=== PATIENT | female | born 1970 | race Caucasian/White ===

== ENCOUNTER → 2016-11-02 | Outpatient (REF) | payer OTHER ==
[~2016-11-02] MED LIST: BACL1TAB9 PO; CITA40TA4 PO; DIFL150T PO; HYDR-3713 PO; LIDO5DIS41 TD; MACR100C43 PO; MIREIUD IU; NASA1SPR; NORT25CA2 PO; OMEP20CA3 PO; RIZA10TA4 PO; SUDA1TAB3 PO; TIZA4CAP3 PO; TRAM50TA2 PO; VITA100066 PO; VITACHTA PO
[2016-11-02 22:20] LABS: MICROSCOPIC INDICATED? MAN YES (NO)
[2016-11-02 22:31] LABS: BACTERIA, URINE MOD AMOUNT; SQUAMOUS EPITHELIAL CELL URINE SMALL AMOUNT /hpf (SMALL AMT)
[2016-11-02 22:32] LABS: HYALINE CAST, URINE NONE SEEN /lpf (0-1); MICROSCOPIC EXAM PERFORMED
== END ==
LOC: M LAB REF 20:51
PROVIDERS: ATTEND Physician Assistant Medical
DX: R30.0 Dysuria (principal)

== ENCOUNTER → 2017-03-15 | Outpatient (REF) | payer OTHER ==
[2017-03-15 20:11] LABS: ALBUMIN 3.2 GM/DL (3.2-5.2); ALBUMIN/GLOBULIN RATIO 1.03 (1.00-1.93); ALKALINE PHOSPHATASE 174 U/L (45-117); ALT/SGPT 25 U/L (12-78); ANION GAP 6 MEQ/L (8-16); AST/SGOT 15 U/L (7-37); BILIRUBIN,TOTAL 0.3 MG/DL (0.2-1.0); BLOOD UREA NITROGEN 9 MG/DL (7-18); CALCIUM LEVEL 8.3 MG/DL (8.5-10.1); CARBON DIOXIDE LEVEL 31 MEQ/L (21-32); CHLORIDE LEVEL 107 MEQ/L (98-107); CHOLESTEROL LEVEL 193 MG/DL (<200); CREATININE FOR GFR 0.71 MG/DL (0.55-1.02); FERRITIN 16 NG/ML (8-252); FREE T4 0.85 NG/DL (0.76-1.46); GLOMERULAR FILTRATION RATE > 60.0 (>58); GLUCOSE, FASTING 120 MG/DL (70-105); MAGNESIUM LEVEL 1.8 MG/DL (1.8-2.4); PERCENT SATURATION 21.6 % (13.2-45.0); POTASSIUM SERUM 3.3 MEQ/L (3.5-5.1); SODIUM LEVEL 144 MEQ/L (136-145); TOTAL IRON BINDING CAPACITY 348 UG/DL (250-450); TOTAL PROTEIN 6.3 GM/DL (6.4-8.2); TRIGLYCERIDES LEVEL 102 MG/DL (<150)
[2017-03-16 09:20] LABS: FOLATE 16.8 NG/ML; VITAMIN B12 LEVEL 506 PG/ML
== END ==
LOC: M SFHCADAM 15:09
PROVIDERS: ATTEND Physician Assistant Medical
DX: F34.1 Dysthymic disorder (principal); Z98.84 Bariatric surgery status

== ENCOUNTER → 2018-01-04 | Outpatient (REF) | payer OTHER ==
[2018-01-04 17:35] LABS: BASO # 0.1 10^3/uL (0.0-0.2); EOS # 0.1 10^3/uL (0.0-0.50); EOS % 2.4 % (0.0-3.0); HEMATOCRIT 39.2 % (36.0-47.0); HEMOGLOBIN 13.1 g/dl (12.0-15.5); IMMATURE GRANULOCYTE % 0.2 % (0-3.0); LYMPH # 1.4 10^3/uL (1.5-4.5); LYMPH % 26.8 % (24.0-44.0); MEAN CORPUSCULAR HEMOGLOBIN 29.8 pg (27.0-33.0); MEAN CORPUSCULAR HGB CONC 33.4 g/dl (32.0-36.5); MEAN CORPUSCULAR VOLUME 89.1 fl (80.0-96.0); MONO # 0.6 10^3/uL (0.0-0.8); MONO % 11.4 % (0.0-5.0); NEUTROPHILS % 58.2 % (36.0-66.0); PLATELET COUNT, AUTOMATED 232 10^3/uL (150-450); RED CELL DISTRIBUTION WIDTH 13.3 % (11.5-14.5); WHITE BLOOD COUNT 5.1 10^3/uL (4.0-10.0)
[2018-01-04 18:00] LABS: ALBUMIN 3.5 GM/DL (3.2-5.2); ALKALINE PHOSPHATASE 153 U/L (45-117); ALT/SGPT 18 U/L (12-78); ANION GAP 8 MEQ/L (8-16); AST/SGOT 14 U/L (7-37); BILIRUBIN,TOTAL 0.3 MG/DL (0.2-1.0); BLOOD UREA NITROGEN 8 MG/DL (7-18); C REACTIVE PROTEIN QUANTITATIV < 0.30 MG/DL (0.00-0.30); CALCIUM LEVEL 8.3 MG/DL (8.5-10.1); CARBON DIOXIDE LEVEL 26 MEQ/L (21-32); CHLORIDE LEVEL 112 MEQ/L (98-107); CREATININE FOR GFR 0.68 MG/DL (0.55-1.30); GLOMERULAR FILTRATION RATE > 60.0 (>58); GLUCOSE, FASTING 43 MG/DL (70-100); POTASSIUM SERUM 3.9 MEQ/L (3.5-5.1); SODIUM LEVEL 146 MEQ/L (136-145); TOTAL PROTEIN 6.8 GM/DL (6.4-8.2)
[2018-01-04 18:08] LABS: ERYTHROCYTE SEDIMENTATION RATE 8 mm/hr (0-20)
[2018-01-04 20:07] LABS: ALBUMIN/GLOBULIN RATIO 1.06 (1.00-1.93)
== END ==
LOC: M SFHCLERA 14:13
DX: M54.42 Lumbago with sciatica, left side (principal)

== ENCOUNTER → 2018-03-19 | Outpatient (REF) | payer OTHER ==
[2018-03-19 17:44] LABS: ALBUMIN 3.2 GM/DL (3.2-5.2); ALBUMIN/GLOBULIN RATIO 0.94 (1.00-1.93); ALKALINE PHOSPHATASE 152 U/L (45-117); ALT/SGPT 16 U/L (12-78); ANION GAP 8 MEQ/L (8-16); AST/SGOT 15 U/L (7-37); BILIRUBIN,TOTAL 0.3 MG/DL (0.2-1.0); BLOOD UREA NITROGEN 7 MG/DL (7-18); CALCIUM LEVEL 8.2 MG/DL (8.5-10.1); CARBON DIOXIDE LEVEL 28 MEQ/L (21-32); CHLORIDE LEVEL 108 MEQ/L (98-107); CHOLESTEROL LEVEL 200 MG/DL (<200); CREATININE FOR GFR 0.68 MG/DL (0.55-1.30); FREE T4 0.85 NG/DL (0.76-1.46); GLOMERULAR FILTRATION RATE > 60.0 (>58); GLUCOSE, FASTING 78 MG/DL (70-100); HDL CHOLESTEROL 100 MG/DL (>40); LDL CHOLESTEROL 85 MG/DL (<100); MAGNESIUM LEVEL 1.8 MG/DL (1.8-2.4); NON-HDL-C 100 MG/DL; POTASSIUM SERUM 4.4 MEQ/L (3.5-5.1); SODIUM LEVEL 144 MEQ/L (136-145); TOTAL PROTEIN 6.6 GM/DL (6.4-8.2); TRIGLYCERIDES LEVEL 75 MG/DL (<150)
[2018-03-19 17:49] LABS: BASO # 0.1 10^3/uL (0.0-0.2); BASO % 1.3 % (0.0-1.0); EOS # 0.1 10^3/uL (0.0-0.50); EOS % 1.3 % (0.0-3.0); HEMATOCRIT 38.3 % (36.0-47.0); HEMOGLOBIN 12.8 g/dl (12.0-15.5); IMMATURE GRANULOCYTE % 0.3 % (0-3.0); LYMPH # 1.3 10^3/uL (1.5-4.5); LYMPH % 32.3 % (24.0-44.0); MEAN CORPUSCULAR HEMOGLOBIN 30.4 pg (27.0-33.0); MEAN CORPUSCULAR HGB CONC 33.4 g/dl (32.0-36.5); MONO # 0.6 10^3/uL (0.0-0.8); MONO % 14.7 % (0.0-5.0); NEUTROPHILS # 1.9 10^3/uL (1.8-7.7); NEUTROPHILS % 50.1 % (36.0-66.0); PLATELET COUNT, AUTOMATED 215 10^3/uL (150-450); RED BLOOD COUNT 4.21 10^6/uL (4.00-5.40); RED CELL DISTRIBUTION WIDTH 11.5 % (11.5-14.5); WHITE BLOOD COUNT 3.9 10^3/uL (4.0-10.0)
[2018-03-19 18:16] LABS: ESTIMATED AVERAGE GLUCOSE 103 MG/DL (60-110); HEMOGLOBIN A1c 5.2 %
[2018-03-21 10:29] LABS: TOTAL 25(OH) VITAMIN D 54.2 NG/ML (30.0-100.0); VITAMIN B12 LEVEL 388 PG/ML
[2018-03-21 10:30] LABS: FOLATE 13.7 NG/ML
== END ==
LOC: M SFHCADAM 09:07
DX: Z98.84 Bariatric surgery status (principal)

== ENCOUNTER → 2018-11-25 | Outpatient (REF) | payer OTHER ==
[~2018-11-25] MED LIST changes: +MIRE1IUD IU; -MIREIUD IU; -OMEP20CA3 PO; +OMEP20CA4 PO; +TIZA4CAP PO; -TIZA4CAP3 PO
[2018-11-25 20:05] LABS: APPEARANCE, URINE CLEAR (CLEAR); BACTERIA, URINE AUTO NEGATIVE (NEGATIVE); BILIRUBIN, URINE AUTO NEGATIVE (NEGATIVE); BLOOD, URINE BLOOD 1+ (NEGATIVE); COLOR, URINE YELLOW (YELLOW); GLUCOSE, URINE (UA) AUTO NEGATIVE (NEGATIVE); KETONE, URINE AUTO NEGATIVE (NEGATIVE); LEUKOCYTE ESTERASE, URINE AUTO 2+ (NEGATIVE); NITRITE, URINE AUTO NEGATIVE (NEGATIVE); PROTEIN, URINE AUTO NEGATIVE (NEGATIVE); RBC, URINE AUTO 1 /HPF (0-3); SPECIFIC GRAVITY URINE AUTO 1.008 (1.002-1.035); SQUAMOUS EPITHELIAL CELL UR AU 1 /HPF (0-6); UROBILINOGEN, URINE AUTO 0.2 mg/dL (0.0-2.0); WBC, URINE AUTO 18 /HPF (0-3)
== END ==
LOC: M SFHCADAM 11-24 15:21
PROVIDERS: ATTEND Physician Assistant Medical
DX: N32.81 Overactive bladder (principal)

== ENCOUNTER → 2019-02-01 | Outpatient (REF) | payer OTHER ==
[2019-02-01 17:47] LABS: APPEARANCE, URINE CLEAR (CLEAR); BACTERIA, URINE AUTO 2+ (NEGATIVE); BILIRUBIN, URINE AUTO NEGATIVE (NEGATIVE); BLOOD, URINE BLOOD 1+ (NEGATIVE); COLOR, URINE STRAW (YELLOW); GLUCOSE, URINE (UA) AUTO 1+ mg/dL (NEGATIVE); KETONE, URINE AUTO NEGATIVE (NEGATIVE); LEUKOCYTE ESTERASE, URINE AUTO 1+ (NEGATIVE); NITRITE, URINE AUTO NEGATIVE (NEGATIVE); PROTEIN, URINE AUTO NEGATIVE (NEGATIVE); RBC, URINE AUTO 1 /HPF (0-3); SPECIFIC GRAVITY URINE AUTO 1.004 (1.002-1.035); SQUAMOUS EPITHELIAL CELL UR AU 0 /HPF (0-6); UROBILINOGEN, URINE AUTO 0.2 mg/dL (0.0-2.0); WBC, URINE AUTO 20 /HPF (0-3)
== END ==
LOC: M SFHCADAM 16:07
PROVIDERS: ATTEND Physician Assistant Medical
DX: R19.7 Diarrhea, unspecified (principal)

== ENCOUNTER → 2019-02-13 | Outpatient (REF) | payer OTHER ==
[~2019-02-13] MED LIST changes: -RIZA10TA4 PO; +RIZA10TA58 PO
[2019-02-13 19:50] LABS: APPEARANCE, URINE CLEAR (CLEAR); BACTERIA, URINE AUTO NEGATIVE (NEGATIVE); BILIRUBIN, URINE AUTO NEGATIVE (NEGATIVE); BLOOD, URINE BLOOD NEGATIVE (NEGATIVE); COLOR, URINE YELLOW (YELLOW); GLUCOSE, URINE (UA) AUTO NEGATIVE (NEGATIVE); KETONE, URINE AUTO NEGATIVE (NEGATIVE); LEUKOCYTE ESTERASE, URINE AUTO TRACE (NEGATIVE); MUCUS, URINE SMALL (NEGATIVE); NITRITE, URINE AUTO NEGATIVE (NEGATIVE); PROTEIN, URINE AUTO NEGATIVE (NEGATIVE); RBC, URINE AUTO 1 /HPF (0-3); SPECIFIC GRAVITY URINE AUTO 1.008 (1.002-1.035); SQUAMOUS EPITHELIAL CELL UR AU 1 /HPF (0-6); UROBILINOGEN, URINE AUTO 0.2 mg/dL (0.0-2.0); WBC, URINE AUTO 2 /HPF (0-3)
== END ==
LOC: M SMT 18:13
PROVIDERS: ATTEND Nurse Practitioner Family
DX: N39.0 Urinary tract infection, site not specified (principal)

== ENCOUNTER → 2019-02-22 | Outpatient (REF) | payer OTHER ==
[2019-02-22 17:53] LABS: APPEARANCE, URINE CLEAR (CLEAR); BACTERIA, URINE AUTO NEGATIVE (NEGATIVE); BILIRUBIN, URINE AUTO NEGATIVE (NEGATIVE); BLOOD, URINE BLOOD 1+ (NEGATIVE); COLOR, URINE STRAW (YELLOW); GLUCOSE, URINE (UA) AUTO NEGATIVE (NEGATIVE); KETONE, URINE AUTO NEGATIVE (NEGATIVE); LEUKOCYTE ESTERASE, URINE AUTO 1+ (NEGATIVE); NITRITE, URINE AUTO NEGATIVE (NEGATIVE); PROTEIN, URINE AUTO NEGATIVE (NEGATIVE); RBC, URINE AUTO 0 /HPF (0-3); SPECIFIC GRAVITY URINE AUTO 1.002 (1.002-1.035); SQUAMOUS EPITHELIAL CELL UR AU 0 /HPF (0-6); UROBILINOGEN, URINE AUTO 0.2 mg/dL (0.0-2.0); WBC, URINE AUTO 3 /HPF (0-3)
== END ==
LOC: M SMT 17:04
PROVIDERS: ATTEND Nurse Practitioner Family
DX: R30.0 Dysuria (principal)

== ENCOUNTER → 2019-02-28 | Outpatient (REF) | payer OTHER ==
[2019-02-28 17:34] LABS: APPEARANCE, URINE MANUAL HAZY (CLEAR); COLOR, URINE MANUAL ORANGE (YELLOW)
[2019-02-28 17:35] LABS: GLUCOSE, URINE (UA) MANUAL NEGATIVE (NEGATIVE); KETONE, URINE MANUAL OBSCURED mg/dL (NEGATIVE); PROTEIN, URINE MANUAL OBSCURED mg/dL (NEGATIVE); UROBILINOGEN, URINE MANUAL OBSCURED mg/dl (NORMAL)
[2019-02-28 17:36] LABS: BILIRUBIN, URINE MANUAL OBSCURED (NEGATIVE); BLOOD URINE MANUAL OBSCURED (NEGATIVE); LEUKOCYTE ESTERASE, URINE MAN OBSCURED (NEGATIVE); NITRITE, URINE MANUAL OBSCURED (NEGATIVE)
[2019-02-28 17:38] LABS: BACTERIA, URINE NONE SEEN; HYALINE CAST, URINE NONE SEEN /lpf (0-1); RBC, URINE NONE SEEN /hpf (0-3); SQUAMOUS EPITHELIAL CELL URINE SMALL AMOUNT /hpf (SMALL AMT); WBC, URINE 0-1 /hpf (0-3)
== END ==
LOC: M SMT 16:31
PROVIDERS: ATTEND Nurse Practitioner Family
DX: R30.0 Dysuria (principal)

== ENCOUNTER → 2019-03-01 | Outpatient (CLI) | payer BC, OTHER ==
--- NOTE | 2019-03-02 09:25 | REP ---
Clinical: Back and flank pain. Technique: Real time booth scale and color ultrasound examination using curved array transducer. Findings: Bilateral kidneys are normal in contour, size, echogenicity, and reniform shape without hydronephrosis, nephrolithiasis, cystic or renal mass lesion. No perinephric fluid collection right kidney measures 12.0 x 4.8 x 4.2 cm and includes extrarenal pelvis. Left kidney measures 11.9 x 4.3 x 5.7 cm. Impression: Normal renal ultrasound. Electronically Signed by Johnie Goddard MD 03/02/2019 09:16 A
--- NOTE | 2019-03-02 09:27 | REP ---
Clinical: Bilateral flank pain. Technique: Real time booth scale and color evaluation using curved array transducer. Findings: The bladder is normal in appearance and without wall thickening or mass lesion. Bilateral ureteral jets are appreciated. Prevoid bladder measures 6.2 x 8.9 x 6.4 cm (185 ml). Postvoid images could not be obtained. The patient was unable to void during examination. Impression: Normal appearance of the bladder. As above. Electronically Signed by Johnie Goddard MD 03/02/2019 09:19 A
== END ==
LOC: M RAD 15:54
PROVIDERS: ATTEND Nurse Practitioner Family
DX: M54.9 Dorsalgia, unspecified (principal)

== ENCOUNTER → 2019-05-01 | Outpatient (REF) | payer OTHER ==
[~2019-05-01] MED LIST changes: +OMEP-172 PO; -OMEP20CA4 PO
== END ==
LOC: M LAB REF 19:08
PROVIDERS: ATTEND Physician Assistant
DX: N39.0 Urinary tract infection, site not specified (principal)

== ENCOUNTER → 2019-05-24 | Outpatient (REF) | payer OTHER ==
[~2019-05-24] MED LIST changes: -OMEP-172 PO; +OMEP1CAP73 PO
== END ==
LOC: M SFHCWAGY 17:25
PROVIDERS: ATTEND Specialist
DX: Z12.4 Encounter for screening for malignant neoplasm of cervix (principal); N91.2 Amenorrhea, unspecified; N95.2 Postmenopausal atrophic vaginitis
CPT/HCPCS: 87624; G0123

== ENCOUNTER → 2019-05-26 | Outpatient (REF) | payer OTHER ==
[2019-05-26 19:58] LABS: FOLLICLE STIMULATING HORMONE 93.8 mIU/mL; LUTEINIZING HORMONE 42.2 mIU/mL
== END ==
LOC: M LABDRAWC 19:10 → M LABDRAW1 19:10
PROVIDERS: ATTEND Specialist
DX: N91.2 Amenorrhea, unspecified (principal)

== ENCOUNTER → 2019-10-20 | Outpatient (REF) | payer OTHER ==
[2019-10-20 19:10] LABS: APPEARANCE, URINE HAZY (CLEAR); BACTERIA, URINE AUTO 1+ (NEGATIVE); BILIRUBIN, URINE AUTO NEGATIVE (NEGATIVE); BLOOD, URINE BLOOD 1+ (NEGATIVE); COLOR, URINE YELLOW (YELLOW); GLUCOSE, URINE (UA) AUTO NEGATIVE (NEGATIVE); KETONE, URINE AUTO NEGATIVE (NEGATIVE); LEUKOCYTE ESTERASE, URINE AUTO 2+ (NEGATIVE); NITRITE, URINE AUTO POSITIVE (NEGATIVE); PROTEIN, URINE AUTO NEGATIVE (NEGATIVE); RBC, URINE AUTO 2 /HPF (0-3); SPECIFIC GRAVITY URINE AUTO 1.006 (1.002-1.035); SQUAMOUS EPITHELIAL CELL UR AU 0 /HPF (0-6); UROBILINOGEN, URINE AUTO 0.2 mg/dL (0.0-2.0); WBC, URINE AUTO 18 /HPF (0-3)
== END ==
LOC: M SFHCPLAZ 14:55
PROVIDERS: ATTEND Physician Assistant Medical
DX: R39.15 Urgency of urination (principal)

== ENCOUNTER → 2019-11-28 | Outpatient (REF) | payer BC, OTHER ==
[2019-12-25 13:54] LABS: APPEARANCE, URINE HAZY (CLEAR); BACTERIA, URINE AUTO 1+ (NEGATIVE); BILIRUBIN, URINE AUTO NEGATIVE (NEGATIVE); BLOOD, URINE BLOOD NEGATIVE (NEGATIVE); COLOR, URINE AMBER (YELLOW); GLUCOSE, URINE (UA) AUTO NEGATIVE (NEGATIVE); KETONE, URINE AUTO NEGATIVE (NEGATIVE); LEUKOCYTE ESTERASE, URINE AUTO 3+ (NEGATIVE); NITRITE, URINE AUTO POSITIVE (NEGATIVE); PROTEIN, URINE AUTO NEGATIVE (NEGATIVE); RBC, URINE AUTO 1 /HPF (0-3); SPECIFIC GRAVITY URINE AUTO 1.005 (1.002-1.035); SQUAMOUS EPITHELIAL CELL UR AU 0 /HPF (0-6); UROBILINOGEN, URINE AUTO 0.2 mg/dL (0.0-2.0); WBC, URINE AUTO 35 /HPF (0-3)
== END ==
LOC: M SMT 08:51
PROVIDERS: ATTEND Nurse Practitioner Women's Health
DX: R30.0 Dysuria (principal)

== ENCOUNTER → 2019-12-13 | Outpatient (REF) | payer OTHER ==
[2019-12-13 19:58] LABS: APPEARANCE, URINE MANUAL HAZY (CLEAR); BILIRUBIN, URINE MANUAL NEGATIVE (NEGATIVE); BLOOD URINE MANUAL TRACE (NEGATIVE); COLOR, URINE MANUAL ORANGE (YELLOW); GLUCOSE, URINE (UA) MANUAL NEGATIVE (NEGATIVE); KETONE, URINE MANUAL NEGATIVE (NEGATIVE); LEUKOCYTE ESTERASE, URINE MAN POSITIVE (NEGATIVE); NITRITE, URINE MANUAL POSITIVE (NEGATIVE); PROTEIN, URINE MANUAL NEGATIVE (NEGATIVE); SPECIFIC GRAVITY,URINE MANUAL 1.015 (1.002-1.035); UROBILINOGEN, URINE MANUAL NORMAL (NORMAL)
[2019-12-13 20:37] LABS: BACTERIA, URINE LARGE AMOUNT; SQUAMOUS EPITHELIAL CELL URINE SMALL AMOUNT /hpf (SMALL AMT); TRANSITIONAL EPI CELLS, URINE SMALL AMOUNT /hpf; WBC, URINE TNTC /hpf (0-3)
[2019-12-13 20:38] LABS: HYALINE CAST, URINE NONE SEEN /lpf (0-1)
== END ==
LOC: M LAB REF 18:26
PROVIDERS: ATTEND Nurse Practitioner Family
DX: N39.0 Urinary tract infection, site not specified (principal)

== ENCOUNTER → 2019-12-20 | Outpatient (CLI) | payer BC, OTHER ==
--- NOTE | 2019-12-28 15:28 | REP ---
RENAL ULTRASOUND CLINICAL: Urinary tract infection. TECHNIQUE: Real-time booth scale and color evaluation using curved array transducer. FINDINGS: The bilateral kidneys are normal in contour, size, echogenicity, and reniform shape without hydronephrosis, nephrolithiasis, cystic or renal mass lesion. Right kidney measures 11.4 x 4.9 x 4.6 cm. Left kidney measures 11.7 x 4.1 x 4.5 cm. IMPRESSION: Normal renal ultrasound. [facility]
--- NOTE | 2019-12-28 15:31 | REP ---
BLADDER ULTRASOUND CLINICAL: Urinary tract infection. TECHNIQUE: Real-time booth scale and color evaluation using curved array transducer. FINDINGS: The bladder is normal in appearance and without wall thickening or mass lesion. Prevoid bladder measured approximately 123 mL (5.3 x 7.4 x 4.8 cm). Patient was unable to void during the time of examination. IMPRESSION: 1. Normal appearance of the bladder. 2. Patient was unable to void during examination and should be correlated clinically/physically. [facility]
== END ==
LOC: M RAD 16:07
PROVIDERS: ATTEND Nurse Practitioner Family
DX: N39.0 Urinary tract infection, site not specified (principal)

== ENCOUNTER → 2020-01-30 | Outpatient (REF) | payer OTHER ==
[2020-01-30 17:20] LABS: APPEARANCE, URINE CLEAR (CLEAR); BACTERIA, URINE AUTO 1+ (NEGATIVE); BILIRUBIN, URINE AUTO NEGATIVE (NEGATIVE); BLOOD, URINE BLOOD NEGATIVE (NEGATIVE); COLOR, URINE AMBER (YELLOW); GLUCOSE, URINE (UA) AUTO NEGATIVE (NEGATIVE); KETONE, URINE AUTO NEGATIVE (NEGATIVE); LEUKOCYTE ESTERASE, URINE AUTO 1+ (NEGATIVE); NITRITE, URINE AUTO NEGATIVE (NEGATIVE); PROTEIN, URINE AUTO NEGATIVE (NEGATIVE); RBC, URINE AUTO 1 /HPF (0-3); SPECIFIC GRAVITY URINE AUTO 1.004 (1.002-1.035); SQUAMOUS EPITHELIAL CELL UR AU 0 /HPF (0-6); UROBILINOGEN, URINE AUTO 0.2 mg/dL (0.0-2.0); WBC, URINE AUTO 13 /HPF (0-3)
== END ==
LOC: M LABSMT 14:53
PROVIDERS: ATTEND Nurse Practitioner Family
DX: R30.0 Dysuria (principal)

== ENCOUNTER → 2020-02-14 | Outpatient (REF) | payer OTHER | LOC: M SMT 16:47 | PROVIDERS: ATTEND Urology | DX: N39.0 Urinary tract infection, site not specified (principal) ==

== ENCOUNTER → 2020-02-26 | Outpatient (CLI) | payer BC, OTHER ==
--- NOTE | 2020-02-26 16:47 | REP ---
INDICATION: ACUTE PAIN OF LEFT SHOULDER. COMPARISON: None. TECHNIQUE: Three views of the shoulder were performed. FINDINGS: There is moderate hypertrophic degenerative change seen involving the acromioclavicular joint. The AC joint is somewhat asymmetrically narrowed and seen with slight marginal osteophytosis. The glenohumeral relationship is within normal limits. There is no acute fracture, dislocation, or subluxation. IMPRESSION: Chronic changes as described above. <Electronically signed by Laryr Arboleda > 02/26/20 [id number]
== END ==
LOC: M ADAMS 16:26
PROVIDERS: ATTEND Physician Assistant Medical
DX: M25.512 Pain in left shoulder (principal)

== ENCOUNTER → 2020-05-24 | Outpatient (REF) | payer OTHER | LOC: M LAB REF 16:07 | PROVIDERS: ATTEND Nurse Practitioner Family | DX: R30.0 Dysuria (principal) ==

== ENCOUNTER → 2021-02-06 | Outpatient (CLI) | payer BC, OTHER ==
--- NOTE | 2021-02-06 17:11 | REPMRS ---
Patient History The patient states she had a clinical breast within the last year but unsure when. Patient is postmenopausal and had first child at age 30. Family history of breast cancer in paternal aunt, colorectal cancer in paternal grandmother. Tomosynthesis is performed. Volpara breast density is c. [facility] lifetime risk of breast cancer 17.4%. Patient states no breast complaints today. Patient has signed MRS History Sheet. Digital Woman Screen Mammo: February 06, 2021 - Exam #: [id number] Bilateral CC and MLO view(s) were taken. Technologist: Marielena Franklin Audit Consultant FINDINGS: There are scattered fibroglandular densities. There has been no change in the appearance of the mammogram from the prior studies. There is a mild amount of residual fibroglandular tissue which is fairly symmetric. There is no interval development of dominant mass, architectural distortion, or clustered microcalcification suggestive of malignancy. Assessment: BI-RADS/ACR category 1 mammogram. Negative Mammogram. Recommendation Routine screening mammogram in 1 year (for women over age 40). This mammogram was interpreted with the aid of an FDA-approved computer-aided dectection system. Electronically Signed By: Jayson Thornton MD 02/06/21 [id number]
== END ==
LOC: M WHC 15:26
PROVIDERS: ATTEND Physician Assistant Medical
DX: Z12.31 Encounter for screening mammogram for malignant neoplasm of breast (principal); Z78.0 Asymptomatic menopausal state; Z80.3 Family history of malignant neoplasm of breast

== ENCOUNTER → 2021-02-21 | Outpatient (CLI) | payer BC, OTHER ==
--- NOTE | 2021-02-21 13:05 | REP ---
INDICATION: POST MENOPAUSAL BLEEDING. COMPARISON: 05/19/2012. TECHNIQUE: Transabdominal and transvaginal ultrasound evaluation of the pelvis was performed. FINDINGS: The anteverted uterus measures 7.3 x 5.6 x 4.2 cm. The right ovary measures 2.3 x 2.2 x 1.2 cm. The resistive index is 0.55. The left ovary is surgically absent. There are no abnormal adnexal masses or fluid collections. The urinary bladder appears unremarkable. IMPRESSION: Normal uterus and right ovary. The left ovary is surgically absent. <Electronically signed by Wayne Parker > 02/21/21 [id number]
== END ==
LOC: M WHC 10:30
PROVIDERS: ATTEND Obstetrics & Gynecology
DX: N95.0 Postmenopausal bleeding (principal); Z90.721 Acquired absence of ovaries, unilateral

== ENCOUNTER → 2021-08-22 | Outpatient (CLI) | payer BC, OTHER ==
[~2021-08-22] MED LIST changes: -CITA40TA4 PO; +CITA40TA7 PO
[2021-08-22 16:14] LABS: HEMATOCRIT 25.1 % (36.0-47.0)
[2021-08-22 16:15] LABS: BASO # 0.1 10^3/uL (0.0-0.2); BASO % 0.8 % (0.0-1.0); EOS # 0.1 10^3/uL (0.0-0.5); HEMATOCRIT 25.3 % (36.0-47.0); LYMPH # 1.8 10^3/uL (1.5-5.0); LYMPH % 24.9 % (24.0-44.0); MEAN CORPUSCULAR HEMOGLOBIN 18.4 pg (27.0-33.0); MEAN CORPUSCULAR HGB CONC 26.9 g/dl (32.0-36.5); MEAN CORPUSCULAR VOLUME 68.6 fl (80.0-96.0); MONO # 0.6 10^3/uL (0.0-0.8); MONO % 8.3 % (2.0-8.0); NEUTROPHILS # 4.6 10^3/uL (1.5-8.5); NEUTROPHILS % 64.7 % (36.0-66.0); PLATELET COUNT, AUTOMATED 284 10^3/uL (150-450); RED BLOOD COUNT 3.69 10^6/uL (4.00-5.40); WHITE BLOOD COUNT 7.2 10^3/uL (4.0-10.0)
[2021-08-22 16:30] LABS: HEMOGLOBIN 6.8 g/dl (12.0-15.5)
[2021-08-22 16:59] LABS: ALBUMIN 3.1 GM/DL (3.2-5.2); ALT/SGPT 19 U/L (12-78); BILIRUBIN,TOTAL 0.4 MG/DL (0.2-1.0); BLOOD UREA NITROGEN 17 MG/DL (7-18); CALCIUM LEVEL 8.3 MG/DL (8.5-10.1); CARBON DIOXIDE LEVEL 29 MEQ/L (21-32); CHLORIDE LEVEL 106 MEQ/L (98-107); CHOLESTEROL LEVEL 144 MG/DL (<200); CHOLESTEROL RISK RATIO 1.714 (<5); CREATININE FOR GFR 0.61 MG/DL (0.55-1.30); FERRITIN < 3 NG/ML (8-252); FOLATE 17.8 NG/ML; GLOMERULAR FILTRATION RATE > 60.0 (>51); GLUCOSE, FASTING 90 MG/DL (70-100); HDL CHOLESTEROL 84 MG/DL (>40); IRON (FE) 12 UG/DL (50-170); LDL CHOLESTEROL 45 MG/DL (<100); NON-HDL-C 60 MG/DL; PERCENT SATURATION 2.4 % (13.2-45.0); POTASSIUM SERUM 3.5 MEQ/L (3.5-5.1); SODIUM LEVEL 139 MEQ/L (136-145); TOTAL 25(OH) VITAMIN D 30.5 NG/ML (30.0-100.0); TOTAL IRON BINDING CAPACITY 503 UG/DL (250-450); TOTAL PROTEIN 6.5 GM/DL (6.4-8.2); TRIGLYCERIDES LEVEL 74 MG/DL (<150); VITAMIN B12 LEVEL 498 PG/ML
== END ==
LOC: M ADAMS 14:58
PROVIDERS: ATTEND Physician Assistant Medical
DX: E66.8 Other obesity (principal); Z98.84 Bariatric surgery status; R53.82 Chronic fatigue, unspecified

== ENCOUNTER 2021-08-26 14:24 | Outpatient (CLI) | payer BC, OTHER ==
[2021-08-26 14:45] VITALS: BP 113/58
[2021-08-26 15:00] VITALS: BP 115/57
[2021-08-26 16:00] VITALS: BP 121/69
[2021-08-26 16:20] VITALS: BP 128/74
== END 2021-08-26 16:30 | disposition home or self-care (01) ==
LOC: M INFU 14:24
PROVIDERS: ATTEND Physician Assistant Medical
DX: D64.9 Anemia, unspecified (principal)
CPT/HCPCS: 36415; 36430; 86850; 86900; 86901; 86920; P9016

== ENCOUNTER → 2021-08-26 | Outpatient (CLI) | payer BC, OTHER | LOC: M LAB 10:34 | PROVIDERS: ATTEND Physician Assistant Medical | DX: Z53.9 Procedure and treatment not carried out, unspecified reason (principal) ==

== ENCOUNTER → 2021-11-25 | Outpatient (CLI) | payer BC, OTHER ==
[2021-11-26 12:43] LABS: BASO # 0.1 10^3/uL (0.0-0.2); EOS # 0.1 10^3/uL (0.0-0.5); EOS % 1.5 % (0.0-3.0); HEMATOCRIT 28.7 % (36.0-47.0); HEMOGLOBIN 8.2 g/dl (12.0-15.5); LYMPH # 2.1 10^3/uL (1.5-5.0); MEAN CORPUSCULAR HGB CONC 28.6 g/dl (32.0-36.5); MEAN CORPUSCULAR VOLUME 66.4 fl (80.0-96.0); MONO # 0.6 10^3/uL (0.0-0.8); MONO % 10.4 % (2.0-8.0); NEUTROPHILS % 51.9 % (36.0-66.0); PLATELET COUNT, AUTOMATED 306 10^3/uL (150-450); RED BLOOD COUNT 4.32 10^6/uL (4.00-5.40); WHITE BLOOD COUNT 5.9 10^3/uL (4.0-10.0)
[2021-11-26 13:35] LABS: PERCENT SATURATION 2.4 % (13.2-45.0)
== END ==
LOC: M ADAMS 15:26
PROVIDERS: ATTEND Physician Assistant Medical
DX: D50.8 Other iron deficiency anemias (principal)

== ENCOUNTER 2021-12-15 09:30 | Outpatient (CLI) | payer BC, OTHER ==
[~2021-12-15] VITALS: Ht 170.2 cm; Wt 64.1 kg
[2021-12-15 09:30] VITALS: BP 113/53
[~2021-12-15 09:30] MED LIST changes: +ALBUTEROL SULFATE 2.5 MG/0.5 ML INH NEB SOLN INH PRN; +EPINEPHrine INJ 1 MG/ML 1ML AMP IM PRN; +IRON SUCROSE 400 MG in NS 250 ML IV ONE; +NS 1,000 ML IV SCH; +diphenhydrAMINE 50MG/ML VIAL (J1200) IV PRN; +methylPREDNISolone 125MG 2ML VIAL IV PRN
[2021-12-15 11:15] VITALS: BP 100/58
[2021-12-15 13:30] VITALS: BP 103/60
== END 2021-12-15 13:30 | disposition home or self-care (01) ==
LOC: M INFU 09:30
PROVIDERS: ATTEND Physician Assistant
DX: D50.9 Iron deficiency anemia, unspecified (principal)

== ENCOUNTER → 2022-02-11 | Outpatient (REF) | payer OTHER ==
[~2022-02-11] MED LIST changes: -ALBUTEROL SULFATE 2.5 MG/0.5 ML INH NEB SOLN INH PRN; -EPINEPHrine INJ 1 MG/ML 1ML AMP IM PRN; -IRON SUCROSE 400 MG in NS 250 ML IV ONE; -NS 1,000 ML IV SCH; -diphenhydrAMINE 50MG/ML VIAL (J1200) IV PRN; -methylPREDNISolone 125MG 2ML VIAL IV PRN
[2022-02-11 18:21] LABS: BASO # 0.1 10^3/uL (0.0-0.2); BASO % 1.4 % (0.0-1.0); EOS # 0.4 10^3/uL (0.0-0.5); EOS % 7.5 % (0.0-3.0); HEMATOCRIT 40.4 % (36.0-47.0); HEMOGLOBIN 12.3 g/dl (12.0-15.5); LYMPH # 1.7 10^3/uL (1.5-5.0); LYMPH % 34.8 % (24.0-44.0); MEAN CORPUSCULAR HEMOGLOBIN 25.1 pg (27.0-33.0); MEAN CORPUSCULAR HGB CONC 30.4 g/dl (32.0-36.5); MEAN CORPUSCULAR VOLUME 82.4 fl (80.0-96.0); MONO # 0.5 10^3/uL (0.0-0.8); MONO % 9.8 % (2.0-8.0); NEUTROPHILS # 2.3 10^3/uL (1.5-8.5); NEUTROPHILS % 46.3 % (36.0-66.0); PLATELET COUNT, AUTOMATED 201 10^3/uL (150-450); WHITE BLOOD COUNT 4.9 10^3/uL (4.0-10.0)
[2022-02-11 18:56] LABS: TOTAL 25(OH) VITAMIN D 32.6 NG/ML (30.0-100.0)
== END ==
LOC: M SFHCADAM 14:39
PROVIDERS: ATTEND Physician Assistant Medical
DX: D50.8 Other iron deficiency anemias (principal)

== ENCOUNTER → 2022-02-18 | Outpatient (CLI) | payer BC, OTHER | LOC: M WHC 15:36 | PROVIDERS: ATTEND Physician Assistant Medical | DX: Z12.31 Encounter for screening mammogram for malignant neoplasm of breast (principal) ==

== ENCOUNTER → 2022-05-13 | Outpatient (CLI) | payer BC, OTHER ==
[2022-05-13 18:06] LABS: BASO # 0.1 10^3/uL (0.0-0.2); BASO % 0.8 % (0.0-1.0); EOS # 0.2 10^3/uL (0.0-0.5); HEMATOCRIT 40.6 % (36.0-47.0); LYMPH # 1.5 10^3/uL (1.5-5.0); LYMPH % 23.2 % (24.0-44.0); MEAN CORPUSCULAR HEMOGLOBIN 29.9 pg (27.0-33.0); MEAN CORPUSCULAR VOLUME 93.3 fl (80.0-96.0); MONO # 0.7 10^3/uL (0.0-0.8); NEUTROPHILS # 3.9 10^3/uL (1.5-8.5); NEUTROPHILS % 61.8 % (36.0-66.0); PLATELET COUNT, AUTOMATED 206 10^3/uL (150-450); RED BLOOD COUNT 4.35 10^6/uL (4.00-5.40); WHITE BLOOD COUNT 6.3 10^3/uL (4.0-10.0)
[2022-05-13 18:09] LABS: HEMATOCRIT 40.6 % (36.0-47.0)
[2022-05-13 18:24] LABS: IRON (FE) 92 UG/DL (50-170); PERCENT SATURATION 21.8 % (13.2-45.0); TOTAL IRON BINDING CAPACITY 422 UG/DL (250-425)
[2022-05-13 18:53] LABS: ALBUMIN 3.1 G/DL (3.2-5.2); ALKALINE PHOSPHATASE 153 U/L (46-116); ALT/SGPT 31 U/L (7.0-40); AST/SGOT 28 U/L (<34); BILIRUBIN,TOTAL 0.3 MG/DL (0.3-1.2); BLOOD UREA NITROGEN 20 MG/DL (9-23); CALCIUM LEVEL 8.7 MG/DL (8.5-10.1); CARBON DIOXIDE LEVEL 27 MMOL/L (20-31); CHLORIDE LEVEL 104 MMOL/L (98-107); CREATININE FOR GFR 0.61 MG/DL (0.55-1.30); FERRITIN 11.2 NG/ML (7.3-270.7); FOLATE 21.7 NG/ML (>5.4); GLOMERULAR FILTRATION RATE > 60.0 (>51); GLUCOSE, FASTING 74 MG/DL (60-100); POTASSIUM SERUM 4.3 MMOL/L (3.5-5.1); SODIUM LEVEL 139 MMOL/L (136-145); TOTAL 25(OH) VITAMIN D 26.9 NG/ML (20.0-100.0); TOTAL PROTEIN 6.9 G/DL (5.7-8.2); VITAMIN B12 LEVEL 769 PG/ML (211-911)
== END ==
LOC: M LABDRWAD 14:58
PROVIDERS: ATTEND Physician Assistant Medical
DX: D50.8 Other iron deficiency anemias (principal); Z98.84 Bariatric surgery status; F34.1 Dysthymic disorder; E66.8 Other obesity

== ENCOUNTER → 2022-07-13 | Outpatient (REF) | payer BC, OTHER | LOC: M SFHCWAGY 18:18 | PROVIDERS: ATTEND Nurse Practitioner Family | DX: Z12.4 Encounter for screening for malignant neoplasm of cervix (principal) | CPT/HCPCS: 87624; G0123 ==

== ENCOUNTER → 2022-08-12 | Outpatient (CLI) | payer BC, OTHER | LOC: M SOG 08:02 | PROVIDERS: ATTEND Orthopaedic Surgery | DX: M19.011 Primary osteoarthritis, right shoulder (principal); M19.012 Primary osteoarthritis, left shoulder ==

== ENCOUNTER → 2022-08-14 | Outpatient (CLI) | payer BC, OTHER ==
[2022-08-14 14:23] LABS: HEMOGLOBIN A1c 5.2 % (4.0-6.0)
== END ==
LOC: M PLARAD 08:04
PROVIDERS: ATTEND Ophthalmology
DX: G43.909 Migraine, unspecified, not intractable, without status migrainosus (principal)

== ENCOUNTER → 2022-11-19 | Outpatient (CLI) | payer BC, OTHER | LOC: M SOG 09:50 | PROVIDERS: ATTEND Orthopaedic Surgery | DX: M25.552 Pain in left hip (principal) ==

== ENCOUNTER → 2023-01-06 | Outpatient (REF) | payer OTHER ==
[2023-01-06 18:09] LABS: IRON (FE) 92 UG/DL (50-170)
[2023-01-06 18:10] LABS: ALBUMIN 3.2 G/DL (3.2-5.2); ALKALINE PHOSPHATASE 169 U/L (46-116); ALT/SGPT 30 U/L (7.0-40); AST/SGOT 17 U/L (<34); BILIRUBIN,TOTAL 0.4 MG/DL (0.3-1.2); BLOOD UREA NITROGEN 9 MG/DL (9-23); CARBON DIOXIDE LEVEL 30 MMOL/L (20-31); CHLORIDE LEVEL 105 MMOL/L (98-107); CREATININE FOR GFR 0.73 MG/DL (0.55-1.30); GLOMERULAR FILTRATION RATE > 60.0 (>51); GLUCOSE, FASTING 75 MG/DL (60-100); PERCENT SATURATION 23.4 % (13.2-45.0); SODIUM LEVEL 142 MMOL/L (136-145); TOTAL IRON BINDING CAPACITY 393 UG/DL (250-425); TOTAL PROTEIN 6.2 G/DL (5.7-8.2)
[2023-01-06 18:13] LABS: FERRITIN 9.7 NG/ML (7.3-270.7); THYROID STIMULATING HORMONE 1.341 uIU/ML (0.55-4.78)
[2023-01-06 18:14] LABS: TOTAL 25(OH) VITAMIN D 62.4 NG/ML (20.0-100.0)
[2023-01-06 18:15] LABS: HEMATOCRIT 41.5 % (36.0-47.0); HEMOGLOBIN 13.5 g/dl (12.0-15.5); MEAN CORPUSCULAR HGB CONC 32.5 g/dl (32.0-36.5); MEAN CORPUSCULAR VOLUME 95.2 fl (80.0-96.0); PLATELET COUNT, AUTOMATED 241 10^3/uL (150-450); RED BLOOD COUNT 4.36 10^6/uL (4.00-5.40); WHITE BLOOD COUNT 4.6 10^3/uL (4.0-10.0)
[2023-01-06 18:17] LABS: FOLATE > 24.0 NG/ML (>5.4); VITAMIN B12 LEVEL 732 PG/ML (211-911)
[2023-01-06 18:19] LABS: HEMATOCRIT 41.8 % (36.0-47.0)
[2023-01-06 20:12] LABS: BASO # 0.1 10^3/uL (0.0-0.2); BASO % 1.1 % (0.0-1.0); EOS # 0.1 10^3/uL (0.0-0.5); EOS % 2.6 % (0.0-3.0); LYMPH # 1.7 10^3/uL (1.5-5.0); LYMPH % 35.5 % (24.0-44.0); MONO # 0.5 10^3/uL (0.0-0.8); MONO % 11.1 % (2.0-8.0); NEUTROPHILS # 2.3 10^3/uL (1.5-8.5); NEUTROPHILS % 49.5 % (36.0-66.0)
[2023-01-06 20:26] LABS: ATYPICAL LYMPH 8 % (0-5); EOSINOPHILS 2 % (0-3); LYMPHOCYTES 34 % (16-44); MONOCYTES 4 % (0-5); NEUTROPHILS 46 % (28-66); PLATELET ESTIMATE NORMAL (NORMAL)
== END ==
LOC: M SFHCADAM 14:41
PROVIDERS: ATTEND Physician Assistant Medical
DX: D50.8 Other iron deficiency anemias (principal); Z98.84 Bariatric surgery status

== ENCOUNTER → 2023-03-02 | Outpatient (CLI) | payer BC, OTHER | LOC: M WHC 08:36 | PROVIDERS: ATTEND Nurse Practitioner Family | DX: Z12.31 Encounter for screening mammogram for malignant neoplasm of breast (principal) ==

== ENCOUNTER → 2023-10-19 | Outpatient (REF) | payer MEDICARE, BC ==
[2023-10-19 18:44] LABS: IRON (FE) 59 UG/DL (50-170)
[2023-10-19 18:45] LABS: ALBUMIN 3.1 G/DL (3.2-5.2); ALKALINE PHOSPHATASE 173 U/L (46-116); ALT/SGPT 27 U/L (7.0-40); AST/SGOT 18 U/L (<34); BILIRUBIN,TOTAL 0.4 MG/DL (0.3-1.2); BLOOD UREA NITROGEN 9 MG/DL (9-23); CALCIUM LEVEL 8.8 MG/DL (8.5-10.1); CARBON DIOXIDE LEVEL 29 MMOL/L (20-31); CHLORIDE LEVEL 105 MMOL/L (98-107); CHOLESTEROL LEVEL 190 MG/DL (<200); FERRITIN 17.6 NG/ML (7.3-270.7); FOLATE 20.4 NG/ML (>5.4); FREE T4 1.07 NG/DL (0.89-1.76); GLOMERULAR FILTRATION RATE > 60.0 (>51); GLUCOSE, FASTING 89 MG/DL (60-100); HDL CHOLESTEROL 99.5 MG/DL (>40); LDL CHOLESTEROL 78.9 MG/DL (<100); MAGNESIUM LEVEL 1.7 MG/DL (1.8-2.4); NON-HDL-C 90.5 MG/DL; PERCENT SATURATION 14.6 % (13.2-45.0); SODIUM LEVEL 139 MMOL/L (136-145); THYROID STIMULATING HORMONE 1.153 uIU/ML (0.55-4.78); TOTAL IRON BINDING CAPACITY 403 UG/DL (250-425); TOTAL PROTEIN 6.1 G/DL (5.7-8.2); TRIGLYCERIDES LEVEL 58 MG/DL (<150)
[2023-10-19 18:46] LABS: TOTAL 25(OH) VITAMIN D 84.7 NG/ML (20.0-100.0); VITAMIN B12 LEVEL 1372 PG/ML (211-911)
[2023-10-19 18:58] LABS: BASO % 0.7 % (0.0-1.0); EOS # 0.1 10^3/uL (0.0-0.5); EOS % 2.8 % (0.0-3.0); HEMATOCRIT 39.5 % (36.0-47.0); HEMOGLOBIN 13.2 g/dl (12.0-15.5); LYMPH # 1.4 10^3/uL (1.5-5.0); LYMPH % 33.8 % (24.0-44.0); MEAN CORPUSCULAR HEMOGLOBIN 31.7 pg (27.0-33.0); MEAN CORPUSCULAR HGB CONC 33.4 g/dl (32.0-36.5); MEAN CORPUSCULAR VOLUME 94.7 fl (80.0-96.0); MONO # 0.6 10^3/uL (0.0-0.8); MONO % 13.6 % (2.0-8.0); NEUTROPHILS # 2.1 10^3/uL (1.5-8.5); NEUTROPHILS % 48.9 % (36.0-66.0); PLATELET COUNT, AUTOMATED 188 10^3/uL (150-450); RED BLOOD COUNT 4.17 10^6/uL (4.00-5.40); WHITE BLOOD COUNT 4.3 10^3/uL (4.0-10.0)
== END ==
LOC: M SFHCADAM 14:08
PROVIDERS: ATTEND Physician Assistant Medical
DX: Z98.84 Bariatric surgery status (principal); F34.1 Dysthymic disorder; D50.8 Other iron deficiency anemias; N32.81 Overactive bladder; E07.9 Disorder of thyroid, unspecified; E78.00 Pure hypercholesterolemia, unspecified

== ENCOUNTER → 2023-11-18 | Outpatient (CLI) | payer MEDICARE, BC | LOC: M SOG 07:55 | PROVIDERS: ATTEND Orthopaedic Surgery | DX: M25.511 Pain in right shoulder (principal); M25.512 Pain in left shoulder; Z53.9 Procedure and treatment not carried out, unspecified reason ==

== ENCOUNTER → 2024-03-02 | Outpatient (CLI) | payer MEDICARE, BC | LOC: M WHC 09:11 | PROVIDERS: ATTEND Physician Assistant Medical | DX: Z12.31 Encounter for screening mammogram for malignant neoplasm of breast (principal) ==

== ENCOUNTER → 2024-06-06 | Outpatient (REF) | payer MEDICARE, BC ==
[2024-06-06 13:42] LABS: APPEARANCE, URINE HAZY (CLEAR); BACTERIA, URINE AUTO NEGATIVE (NEGATIVE); BILIRUBIN, URINE AUTO NEGATIVE (NEGATIVE); BLOOD, URINE BLOOD NEGATIVE (NEGATIVE); COLOR, URINE YELLOW (YELLOW); GLUCOSE, URINE (UA) AUTO NEGATIVE (NEGATIVE); KETONE, URINE AUTO NEGATIVE (NEGATIVE); LEUKOCYTE ESTERASE, URINE AUTO NEGATIVE (NEGATIVE); NITRITE, URINE AUTO NEGATIVE (NEGATIVE); PROTEIN, URINE AUTO NEGATIVE (NEGATIVE); RBC, URINE AUTO 1 /HPF (0-3); SPECIFIC GRAVITY URINE AUTO 1.012 (1.002-1.035); SQUAMOUS EPITHELIAL CELL UR AU 0 /HPF (0-6); UROBILINOGEN, URINE AUTO 0.2 mg/dL (0.0-2.0); WBC, URINE AUTO 1 /HPF (0-3)
== END ==
LOC: M LAB REF 12:38
PROVIDERS: ATTEND Physician Assistant Medical
DX: N39.0 Urinary tract infection, site not specified (principal)

== ENCOUNTER → 2024-06-22 | Outpatient (REF) | payer MEDICARE, BC ==
[2024-06-22 19:10] LABS: HEMATOCRIT 41.1 % (36.0-47.0)
[2024-06-22 19:17] LABS: BASO # 0.1 10^3/uL (0.0-0.2); BASO % 1.2 % (0.0-1.0); EOS # 0.1 10^3/uL (0.0-0.5); EOS % 3.1 % (0.0-3.0); HEMATOCRIT 40.9 % (36.0-47.0); HEMOGLOBIN 13.5 g/dl (12.0-15.5); LYMPH # 1.4 10^3/uL (1.5-5.0); LYMPH % 33.4 % (24.0-44.0); MEAN CORPUSCULAR HEMOGLOBIN 31.8 pg (27.0-33.0); MEAN CORPUSCULAR VOLUME 96.2 fl (80.0-96.0); MONO # 0.4 10^3/uL (0.0-0.8); MONO % 9.9 % (2.0-8.0); NEUTROPHILS # 2.2 10^3/uL (1.5-8.5); NEUTROPHILS % 52.2 % (36.0-66.0); PLATELET COUNT, AUTOMATED 210 10^3/uL (150-450); RED BLOOD COUNT 4.25 10^6/uL (4.00-5.40); WHITE BLOOD COUNT 4.3 10^3/uL (4.0-10.0)
[2024-06-22 19:42] LABS: ALBUMIN 3.1 G/DL (3.2-5.2); ALKALINE PHOSPHATASE 145 U/L (35-104); ALT/SGPT 20 U/L (7.0-40); AST/SGOT 18 U/L (<34); BILIRUBIN,TOTAL 0.4 MG/DL (0.3-1.2); BLOOD UREA NITROGEN 9 MG/DL (9-23); CALCIUM LEVEL 8.6 MG/DL (8.5-10.1); CARBON DIOXIDE LEVEL 30 MMOL/L (20-31); CHLORIDE LEVEL 105 MMOL/L (98-107); CHOLESTEROL LEVEL 210 MG/DL (<200); CHOLESTEROL RISK RATIO 1.89 (<5); CREATININE FOR GFR 0.66 MG/DL (0.55-1.30); FERRITIN 11.4 NG/ML (7.3-270.7); FOLATE 23.1 NG/ML (>5.4); FREE T4 1.04 NG/DL (0.89-1.76); GLOMERULAR FILTRATION RATE > 60.0 (>51); GLUCOSE, FASTING 63 MG/DL (60-100); HDL CHOLESTEROL 110.8 MG/DL (>40); IRON (FE) 101 UG/DL (50-170); LDL CHOLESTEROL 77.8 MG/DL (<100); MAGNESIUM LEVEL 1.8 MG/DL (1.8-2.4); NON-HDL-C 99.2 MG/DL; PERCENT SATURATION 25.7 % (13.2-45.0); SODIUM LEVEL 144 MMOL/L (136-145); THYROID STIMULATING HORMONE 1.461 uIU/ML (0.55-4.78); TOTAL IRON BINDING CAPACITY 393 UG/DL (250-425); TOTAL PROTEIN 6.3 G/DL (5.7-8.2); TRIGLYCERIDES LEVEL 107 MG/DL (<150)
[2024-06-22 19:43] LABS: VITAMIN B12 LEVEL 822 PG/ML (211-911)
[2024-06-22 20:09] LABS: HEMOGLOBIN A1c > 14.0 % (4.0-6.0)
== END ==
LOC: M SFHCADAM 11:10
PROVIDERS: ATTEND Physician Assistant Medical
DX: Z98.84 Bariatric surgery status (principal); R53.82 Chronic fatigue, unspecified; D50.8 Other iron deficiency anemias; Z79.899 Other long term (current) drug therapy

== ENCOUNTER → 2024-06-28 | Outpatient (REF) | payer MEDICARE, BC ==
[2024-06-28 13:23] LABS: APPEARANCE, URINE CLEAR (CLEAR); BACTERIA, URINE AUTO NEGATIVE (NEGATIVE); BILIRUBIN, URINE AUTO NEGATIVE (NEGATIVE); BLOOD, URINE BLOOD NEGATIVE (NEGATIVE); COLOR, URINE YELLOW (YELLOW); GLUCOSE, URINE (UA) AUTO NEGATIVE (NEGATIVE); KETONE, URINE AUTO NEGATIVE (NEGATIVE); LEUKOCYTE ESTERASE, URINE AUTO NEGATIVE (NEGATIVE); NITRITE, URINE AUTO NEGATIVE (NEGATIVE); PROTEIN, URINE AUTO NEGATIVE (NEGATIVE); RBC, URINE AUTO 0 /HPF (0-3); SPECIFIC GRAVITY URINE AUTO 1.004 (1.002-1.035); SQUAMOUS EPITHELIAL CELL UR AU 0 /HPF (0-6); UROBILINOGEN, URINE AUTO 0.2 mg/dL (0.0-2.0); WBC, URINE AUTO 0 /HPF (0-3)
[2024-06-28 14:18] LABS: HEMOGLOBIN A1c 4.7 % (4.0-6.0)
== END ==
LOC: M SFHCADAM 09:43
PROVIDERS: ATTEND Physician Assistant Medical
DX: R35.0 Frequency of micturition (principal); Z79.899 Other long term (current) drug therapy

== ENCOUNTER → 2025-01-26 | Outpatient (CLI) | payer MEDICARE, BC ==
[~2025-01-26] MED LIST changes: +LIDO1ADH93 TD; -LIDO5DIS41 TD
== END ==
LOC: M WHC 11:44
PROVIDERS: ATTEND Nurse Practitioner Family
DX: Z53.9 Procedure and treatment not carried out, unspecified reason (principal)

== ENCOUNTER → 2025-03-28 | Outpatient (CLI) | payer MEDICARE, BC | LOC: M WHC 13:19 | PROVIDERS: ATTEND Nurse Practitioner Family | DX: Z12.31 Encounter for screening mammogram for malignant neoplasm of breast (principal); R92.313 Mammographic fatty tissue density, bilateral breasts ==